=== PATIENT | male | born 1995 | race African-American/Black ===

== ENCOUNTER 2025-06-20 23:35 | Emergency (ER) | payer SELFPAY ==
[~2025-06-20] VITALS: Ht 188 cm; Wt 118.0 kg
[2025-06-20 23:40] VITALS: O2SAT 99
[2025-06-21 00:28] LABS: BASOPHILS % 0.3 % (0.0-2.0); EOSINOPHILS % 0.5 % (0.0-5.0); HEMATOCRIT. 48.7 % (42.0-52.0); HEMOGLOBIN. 16.3 g/dL (14.0-18.0); LYMPHOCYTES % 16.8 % (20.0-50.0); MEAN PLATELET VOLUME 8.7 fl (7.4-10.4); MONOCYTES % 6.1 % (2.0-8.0); NEUTROPHILS % 76.3 % (40.0-76.0); PLATELET 190 x1000/uL (130-400); RED BLOOD CELL COUNT 5.39 mill/uL (4.7-6.1); RED CELL DISTRIBUTION WIDTH 14.7 % (11.6-14.6)
[2025-06-21 00:43] LABS: CREATININE 1.3 mg/dL (0.6-1.3); TROPONIN I HIGH SENSITIVITY 14 ng/L (3.0-53); UREA NITROGEN BLOOD 11 mg/dL (9-23)
[2025-06-21] MEDS: KETOROLAC 30MG/ML VIAL IM ONE (00:55)
[2025-06-21 03:05] LABS: TROPONIN I HIGH SENSITIVITY 13 ng/L (3.0-53)
[2025-06-21 03:25] VITALS: BP 144/75; PULSE 74; RESP 18; TEMP 37.2; O2SAT 98
== END 2025-06-21 03:40 | disposition home or self-care (01) ==
LOC: ER 23:35
DX: R07.89 Other chest pain (principal)
CPT/HCPCS: 36415; 71045; 80048; 84484; 85025; 85379; 93005; 99285